=== PATIENT | male | born 1935 | race Caucasian/White ===

== ENCOUNTER → 2017-06-12 | Day surgery (SDC) | payer MEDICARE, OTHER ==
[~2017-06-12] MED LIST: AMLODIPINE BESY10 MG PO; ASPIR 8181 MG PO; CALCIUM ACETAT667 MG PO; CARDURA4 MG PO; CARVEDILOL12.5 MG PO; FENOFIBRATE160 MG PO; FISH OIL 1,2001 EAC4 PO; HYDROCODONE-AP1 EAC6 PO; IRON325 PO; LASIX 20 MG TAB20 MG PO; NOVOLOG100 UNIT/1 SUBQ; PROTONIX40 M1 PO; SIMVASTATIN40 MG PO; TRESIBA FL100 UNIT/1 SUBQ; VITAMIN D35000 UNIT PO; VITAMINC500 PO
[2017-06-12 11:16] LABS: HEMATOCRIT 37.3 % (42.0-52.0); HEMOGLOBIN 12.6 gm/dL (14.0-18.0); MCH 29.8 pg (26.0-34.0); MCHC 33.9 g/dL (28.0-37.0); MPV 8.4 fl. (7.2-11.1); RBC 4.23 mil/uL (4.50-6.00); RDW-CV 14.2 % (10.5-14.5); WBC 5.9 thou/uL (4.0-11.0)
[2017-06-12 11:20] LABS: CALCIUM 9.3 mg/dL (8.5-10.1); CREATININE 3.8 mg/dL (0.6-1.3); POTASSIUM 4.6 mmol/L (3.5-5.1)
--- NOTE | 2017-06-12 17:41 | EKG ---
[place] [address] ELECTROCARDIOGRAM REPORT Name: BENNY MARCUS Room: [facility].#: [id number] Admission: 06/12/17 Attend Phys: Erasmo Elmore Discharge: Date of : 37 Report #: [id number] THIS REPORT FOR: //name// [facility] Test Date: 2017-06-12 Test Time: 11:11:11 Pat Name: BENNY MARCUS Department: Room: Gender: M Assembler Cards And Announcements: 28 : 1935 Requested By: Erasmo Elmore Order Number: [id number] Reading MD: Brandon Martin Measurements Intervals [place] Rate: 61 P: 38 MS: 192 QRS: -11 QRSD: 98 T: 60 QT: 431 QTc: 434 Interpretive Statements Sinus rhythm No previous ECG available for comparison Electronically Signed On 06-12-2017 17:41:16 [employer]TAIN [employer]END[employer] by Brandon Martin [email or web address] <ELECTRONICALLY SIGNED> By: Brandon Martin MD, [facility] 06/12/17 1741 1111 1111 Brandon Martin MD, FACC /EPI
--- NOTE | 2017-06-19 07:48 | OP ---
[facility] [address] [place] [address] OPERATIVE REPORT Name: ANGELINEBENNY Kirk Room: [facility]#: [id number] Admission: 06/12/17 Attend Phys: Erasmo Elmore Discharge: Date of : 37 Report #: [id number] THIS REPORT FOR: //name// CC: Santo Elmore PREOPERATIVE DIAGNOSIS: End-stage renal disease. POSTOPERATIVE DIAGNOSIS: End-stage renal disease. OPERATION: 1. Laparoscopic placement of peritoneal dialysis catheter. 2. Laparoscopic omentopexy. SURGEON: Erasmo Elmore MD ANESTHESIA: General. ESTIMATED BLOOD LOSS: Minimal. DESCRIPTION OF PROCEDURE: After informed consent was obtained, the patient was brought to the operating room and placed supine. SCDs were placed and working, preoperative antibiotics were administered, general anesthesia was induced. The abdomen was prepped and draped in the usual sterile fashion. A 5-mm incision was made in the left upper quadrant. A 5-mm trocar was placed under direct vision. Pneumoperitoneum was established. A left-sided 5-mm port was placed. An 8-mm port was placed in the left rectus sheath. The 62 cm Covidien catheter was placed. The cuff was then pulled back, so that it was in the rectus sheath. The CO2 was then released. I tunneled the catheter to the left upper quadrant of the abdomen. It flushed very well with about 750 mL of heparinized saline. It also drained readily. I then reinserted the laparoscope. An omentopexy was performed by tacking the omentum to the right upper quadrant and the left upper quadrant using a 2-0 Vicryl suture and a suture passer. The ports were removed under direct vision. The skin was closed with 4-0 Monocryl. Incisions were dressed with sterile gauze and an occlusive dressing. COMPLICATIONS: [place] [address] OPERATIVE REPORT Name: BENNY MARCUS Room: [facility]#: [id number] Admission: 06/12/17 Attend Phys: Erasmo Elmore Discharge: Date of : 37 Report #: [id number] DISPOSITION: The patient will stay in the operating room to undergo AV fistula placement. <ELECTRONICALLY SIGNED> By: Erasmo Elmore MD 06/19/17 0748 1338 1701Erasmo Elmore MD /nt
--- NOTE | 2017-06-19 14:35 | OP ---
[address] [address] OPERATIVE REPORT Name: BENNY MARCUS Room: [facility]#: [id number] Admission: 06/12/17 Attend Phys: Erasmo Elmore Discharge: Date of : 37 Report #: [id number] THIS REPORT FOR: //name// CC: Santo Elmore DATE OF SERVICE: 06/12/2017 PREOPERATIVE DIAGNOSIS: End-stage renal disease, requiring dialysis. POSTOPERATIVE DIAGNOSIS: End-stage renal disease, requiring dialysis. SURGEON: Erasmo Palacios DO PANEL INSTRUMENT REPAIRER: OSBALDO Levin ANESTHESIA: General. PROCEDURE: Left upper extremity brachiocephalic AV fistula creation. ESTIMATED BLOOD LOSS: 20 mL. SPECIMEN: None. COMPLICATIONS: None. CONDITION: Stable. DISPOSITION: Home. INDICATIONS FOR THE PROCEDURE AND CONSENT: The patient is an 81-year-old male with end-stage renal disease, requiring dialysis. He is under the care of Dr. Elmore as well for peritoneal dialysis catheter placement. Risks and benefits of both peritoneal dialysis catheter placement as well as backup AV fistula were discussed with him by myself and Dr. Elmore and a combined surgery time was agreed upon. The patient did wish to proceed, was consented and scheduled. PROCEDURE IN DETAIL: After timeout was performed, the patient was placed in supine position with sterile prep and drape for laparoscopic peritoneal dialysis catheter placement by Dr. Elmore. Dr. Elmore completed his portion of the procedure and then all prep and drape materials were removed and the left upper extremity was sterilely prepped and draped in sterile fashion circumferentially. Ultrasound was utilized to confirm the cephalic vein patency size and location and 1% lidocaine was injected and a planned incision just above the antecubital fossa. A 15 blade scalpel was used to make an [place] [address] OPERATIVE REPORT Name: BENNY MARCUS [facility] [id number] Admission: 06/12/17 Attend Phys: Erasmo Elmore Discharge: Date of : 37 Report #: [id number] using Bovie electrocautery and Metzenbaum scissors. The cephalic vein was identified, several venous tributaries were ligated with 2-0 silk. Vein was noted to be quite large and healthy. It was followed distally towards the antecubital fossa and branches again were ligated with 2-0 silk suture and divided. I then identified the brachial artery and proximal and distal control was obtained with vessel loops. The patient was systemically heparinized with 5000 units of heparin. This was allowed to circulate for 3 minutes. I then ligated the cephalic vein distally and transected with a 11 blade scalpel. The vein was freed up proximally to allow for additional possibility of transposition to meet the brachial artery. The vein was originally heparinized with hep saline and Bulldog clamp was applied. The vein was then fashioned as a ayala and 11 blade was used to make a longitudinal arteriotomy ____ brachial artery after applying two profunda clamps. End-to-side anastomosis was then created with 6-0 Prolene in a standard fashion. Blood flow was then restored through the artery and fistula and noted to have a palpable thrill. The anastomosis was also noted to be hemostatic. The radial signal was multiphasic and did not augment significantly with compression of the fistula. Being satisfied of the AV fistula, the wound was copiously irrigated with saline and closed in layers using 3-0 Vicryl and 4-0 Monocryl suture. Dermabond dressing was applied. The patient tolerated the procedure well. Lap, needle and instrument counts correct. <ELECTRONICALLY SIGNED> By: Erasmo Palacios DO 06/19/17 1435 1622 1807Erasmo Palacios DO /nt
== END | disposition home or self-care (01) ==
LOC: M.SUR 09:00
PROVIDERS: Surgery
DX: N18.6 End stage renal disease (principal); Z68.36 Body mass index [BMI] 36.0-36.9, adult; Z99.2 Dependence on renal dialysis; E11.8 Type 2 diabetes mellitus with unspecified complications; Z79.4 Long term (current) use of insulin